=== PATIENT | male | born 1945 | race Caucasian/White ===

== ENCOUNTER 2016-12-25 15:32 | Emergency (ER) | payer OTHER, MEDICARE, BC ==
[~2016-12-25] VITALS: Ht 172.7 cm; Wt 100.0 kg
[~2016-12-25 15:32] MED LIST: ALBUTEROL SUL0.083 % IN; AMLODIPINE10 MG OR; AMLODIPINE10 MG PO; AUGMENTIN875TAB PO; BABY ASPIRIN81 MG PO; BACTRIM DS1 TAB PO; CIPRO500 MG OR; CLONIDINE0.1 MG OR; CLONIDINE0.1 MG PO; DOXYCYC MONO100 M1 PO; GLIMEPIRIDE2 MG PO; GLYBURIDE2.5 MG PO; INDOMETHACIN50 MG PO; LANCETS 30G30 G XX; LISINOPRIL20 MG PO; LORTAB 7.5 PO; METOPROL TAR50 MG OR; METOPROLOL TART50 MG PO; METOPROLOL100 M1 OR; Metformin OR; Metformin PO; NORVASC10 MG OR; ONE TOUCH ULTRA 100; ZESTRIL40 MG OR; allo OR; allo PO
[2016-12-25] MEDS ORDERED: EC-NAPROSYN500 MG PO (15:54)
[2016-12-25 16:14] VITALS: BP 161/70
== END 2016-12-25 16:09 | disposition home or self-care (01) | DRG 923 ==
LOC: ED 15:32
DX: Z04.1 Encounter for examination and observation following transport accident (principal); V43.52XA Car driver injured in collision with other type car in traffic accident, initial encounter; Y92.414 Local residential or business street as the place of occurrence of the external cause

== ENCOUNTER 2017-01-17 06:49 | Day surgery (SDC) | payer MEDICARE, BC ==
[~2017-01-17] VITALS: Ht 172.7 cm; Wt 108.9 kg
[~2017-01-17 06:49] MED LIST changes: +EC-NAPROSYN500 MG PO; +LISINOPRIL40 MG PO; +METFORMIN1000 MG PO; +NOVOLOG MIX SC; +ZOCOR20 M1 PO
[2017-01-17 10:33] VITALS: BP 176/85
== END 2017-01-17 09:50 | disposition home or self-care (01) ==
LOC: ENDO 06:49
PROVIDERS: ATTEND Internal Medicine Gastroenterology
PROC: 0DBN8ZX Excision of Sigmoid Colon, Via Natural or Artificial Opening Endoscopic, Diagnostic (ICD-10-PCS; principal; 2017-01-17)
DX: Z12.11 Encounter for screening for malignant neoplasm of colon (principal); K63.5 Polyp of colon; K64.4 Residual hemorrhoidal skin tags; K57.30 Diverticulosis of large intestine without perforation or abscess without bleeding; K64.8 Other hemorrhoids; E78.00 Pure hypercholesterolemia, unspecified; I10 Essential (primary) hypertension; E11.9 Type 2 diabetes mellitus without complications; Z86.010 Personal history of colon polyps

== ENCOUNTER 2020-08-28 03:24 | Observation (INO) | payer MEDICARE, BC ==
[~2020-08-28] VITALS: Ht 172.7 cm; Wt 114.0 kg
--- NOTE | 2020-08-28 03:30 | NUR ---
PT ARRIVED VIA EMS...NAD. IMMEDIATELY TO BEDSIDE.
--- NOTE | 2020-08-28 03:45 | NUR ---
PT STATES HE WAS FINE LAST NIGHT WHEN HE WENT TO BED AND WOKE UP AROUND 200AM WITH DIFFICULTY BREATHING FELT LIKE HE "JUST COULDN'T GET ENOUGH OXYGEN IN" SO HE CALLED EMS, STATES THIS HAPPENED TO HIM IN [place] IN [place]ILE VISITING HIS DAUGHTER AND THEY DIAGNOSED HIM WITH BRONCHITIS, CURRENTLY STATES FEELING BETTER, LUNG SOUNDS CLEAR SLIGHTLY DIMINSHED, O2 SAT 97% ON ROOM AIR, IV ACCESS OBTAINED AND LAB WORK OBTAINED WELL COVID AND FLU SAWABS, PT TOLERATED ALL WITH OUT INCIDENT, AWARE OF AWAITING RESULTS.
[2020-08-28 03:50] LABS: HEMOGLOBIN 14.5 g/dl (14.0-18.0); IMMATURE GRANULOCYTES 0.4 % (0.0-5.0); MEAN CELL VOLUME 88.5 fL CALC (80.0-100.0); MEAN CORPUSCULAR HGB 29.8 pG CALC (26.0-32.0); MEAN CORPUSCULAR HGB CONC 33.7 g/dL CAL (32.0-36.0); NEUT# 6.07 thou/uL (1.82-7.42); RED BLOOD COUNT 4.86 mill/uL (4.70-6.10); RED CELL DISTRI WIDTH 13.5 % (11.5-15.5)
--- NOTE | 2020-08-28 03:52 | NUR ---
REPEAT B/P 156/ HERMILO HELD MD AWARE.
[2020-08-28] MEDS ORDERED: LIPITOR40 M1 PO (03:57)
[2020-08-28] MEDS ORDERED: MICARDIS H80 MG/25 M PO (03:58)
[2020-08-28] MEDS ORDERED: BYSTOLIC20 MG PO (03:59)
[2020-08-28] MEDS ORDERED: VITAMIN D33000 UNIT PO (03:59)
[2020-08-28] MEDS ORDERED: SUPER B COM2 PO (04:00)
[2020-08-28] MEDS ORDERED: CENTRUM SILVER1 TA2 PO (04:01)
[2020-08-28] MEDS ORDERED: GUANFACINE1 MG PO (04:03)
[2020-08-28 04:05] LABS: ALBUMIN 4.8 g/dL (3.2-5.0); ALKALINE PHOSPHATASE 83 u/l (38-126); BILIRUBIN, TOTAL 0.8 mg/dL (0.0-1.4); BUN 23 mg/dL (8-23); BUN/CREATININE RATIO 30 (12-20 (CALC)); CARBON DIOXIDE 27 mmol/l (22-30); CHLORIDE 99 mmol/l (95-108); CREATININE 0.8 mg/dL (0.7-1.3); GFR > 60 ML/MIN (>=60 (CALC)); GFR FOR AFR.AMER. > 60 ML/MIN (>=60 (CALC)); SGOT/AST 45 u/l (19-48); SODIUM 140 mmol/l (137-146); TOTAL PROTEIN 8.4 g/dL (6.3-8.2)
[2020-08-28 04:07] LABS: ANION GAP 17 (6-22 (CALC)); POTASSIUM 3.4 mmol/l (3.5-5.1)
--- NOTE | 2020-08-28 05:06 | NUR ---
PT RETURNED FROM CT. RE-CONNECTED TO EQUIPT. RESTING. RESP EASY REG. NO C/O. WARM BLANKET APPLIED. HOB LOWERED. LIGHTS DIMMED.
--- NOTE | 2020-08-28 05:32 | NUR ---
PT RESTING NO S/S OF DISTRESS, CALL [facility] WITHIN REACH.
--- NOTE | 2020-08-28 06:02 | NUR ---
PT AWARE OF PENDING ADMISSION, NO S/S OF DISTRESS NOTED, CALL [facility] WITHIN REACH
--- NOTE | 2020-08-28 07:15 | NUR ---
ASSUMED CARE OF PT FOR TRANSPORT. PT TRANSPORTED TO MED SURG STABLE AND IN NO DISTRESS. PRIOR NURSE STATES SHE GAVE REPORT. Admission Note Report Given to: MED SURG NURSE Transported by: Wheelchair X Stretcher Transported with: X Nurse Transporter X Patent IV O2 X Parts Control Clerk Location: ICU X [facility]
[2020-08-28 07:26] VITALS: BP 173/86
--- NOTE | 2020-08-28 07:26 | NUR ---
PT ARRIVED FROM ER VIA STRETCHER WITH STAFF. IV SITE AND TELE MONITOR IN PLACE.
--- NOTE | 2020-08-28 08:35 | NUR ---
ASSESSMENT IS COMPLETED: IV SITE IS FREE FROM REDNESS OR EDEMA. HR IS REG,PULSES ARE STRONG X4, ABD IS SOFT WITH ACTIVE BS.BREATH SOUNDS ARE CLEAR,BILATERALLY, TELE MONITOR IN PLACE.
[2020-08-28 08:55] VITALS: BP 137/50
[2020-08-28 10:27] VITALS: BP 162/72
[2020-08-28] MEDS ORDERED: XANAX0.25 MG PO (11:22)
[2020-08-28 12:02] VITALS: BP 162/72
--- NOTE | 2020-08-28 12:15 | NUR ---
IV SITE DISCONTINUED CATHETER INTACT.NO REDNESS OR EDEMA. DISCHARGE INSTRUCTIONS GIVEN AND VERBALIZED UNDERSTANDING. WAITING ON RIDE.
--- NOTE | 2020-08-28 13:26 | NUR ---
Discharge instructions given. Patient verbalizes understanding of same. Discharged in stable condition via Wheelchair to Home with family. All belongings sent with pt.
== END 2020-08-28 13:18 | disposition home or self-care (01) ==
LOC: ED 03:24 → ED-I 06:05 → ED 06:28 → MS2 06:29
PROVIDERS: Emergency Medicine; ADMIT Internal Medicine; ATTEND Internal Medicine
DX: R06.02 Shortness of breath (principal); F41.9 Anxiety disorder, unspecified; I10 Essential (primary) hypertension; E11.9 Type 2 diabetes mellitus without complications; G47.30 Sleep apnea, unspecified; N40.0 Benign prostatic hyperplasia without lower urinary tract symptoms; Z79.4 Long term (current) use of insulin; Z20.822 Contact with and (suspected) exposure to COVID-19
CPT/HCPCS: G0378; Q9967

== ENCOUNTER 2022-05-26 04:51 | Emergency (ER) | payer MEDICARE, BC ==
[~2022-05-26] VITALS: Ht 172.7 cm; Wt 115.9 kg
[2022-05-26] VITALS (8 sets, daily range): BP systolic 170–186; BP diastolic 77–90
[~2022-05-26 04:51] MED LIST changes: +BYSTOLIC20 MG PO; +CENTRU2; +CENTRUM SILVER1 TA2 PO; +GABAPENTIN300 M2 PO; +GUANFACINE1 MG PO; +HYDROCHLOROTH12.5 M1 PO; +LIPITOR40 M1 PO; +MICARDIS H80 MG/25 M PO; +SUPER B COM2 PO; +VITAMIN D33000 UNIT PO; +XANAX0.25 MG PO
[2022-05-26 05:58] LABS: BASO% 0.7 % (0-3); EOS% 5.5 % (0-8); HEMATOCRIT 38.8 % (39.0-50.0); HEMOGLOBIN 13.4 g/dl (14.0-18.0); IMMATURE GRANULOCYTES 0.5 % (0.0-5.0); LYMPH% 27.1 % (15-41); MEAN CELL VOLUME 89.4 fL CALC (80.0-100.0); MEAN CORPUSCULAR HGB 30.9 pG CALC (26.0-32.0); MEAN CORPUSCULAR HGB CONC 34.5 g/dL CAL (32.0-36.0); MONO% 6.7 % (2-13); NEUT# 5.67 thou/uL (1.82-7.42); NEUT% 59.5 % (42-76); RED BLOOD COUNT 4.34 mill/uL (4.70-6.10); RED CELL DISTRI WIDTH 13.3 % (11.5-15.5)
[2022-05-26 06:25] LABS: ACT PARTIAL THROMBO TIME 25.8 SECONDS (20.0-32.5)
[2022-05-26 06:26] LABS: ALBUMIN 4.2 g/dL (3.2-5.0); ALKALINE PHOSPHATASE 79 u/l (38-126); ANION GAP 14 (6-22 (CALC)); BILIRUBIN, TOTAL 0.6 mg/dL (0.0-1.4); BUN 17 mg/dL (8-23); BUN/CREATININE RATIO 25 (12-20 (CALC)); CARBON DIOXIDE 25 mmol/l (22-30); CHLORIDE 105 mmol/l (95-108); CREATININE 0.7 mg/dL (0.7-1.3); GFR FOR AFR.AMER. > 60 ML/MIN (>=60 (CALC)); GFR OTHER RACES > 60 ML/MIN (>=60 (CALC)); POTASSIUM 3.5 mmol/l (3.5-5.1); SGOT/AST 42 u/l (19-48); SODIUM 141 mmol/l (137-146); TOTAL PROTEIN 7.1 g/dL (6.3-8.2)
[2022-05-26 06:32] LABS: D-DIMER 0.58 mg/L (0.19-0.60)
[2022-05-26] MEDS ORDERED: VIBRAMYCIN100 M2 PO (07:00)
[2022-05-26] MEDS ORDERED: VENTOLIN HFA IN (07:00)
== END 2022-05-26 07:42 | disposition home or self-care (01) ==
LOC: ED 04:51
PROVIDERS: Family Medicine
DX: J20.9 Acute bronchitis, unspecified (principal); I10 Essential (primary) hypertension; E11.9 Type 2 diabetes mellitus without complications; Z79.84 Long term (current) use of oral hypoglycemic drugs; Z79.4 Long term (current) use of insulin; Z20.822 Contact with and (suspected) exposure to COVID-19

== ENCOUNTER 2022-11-06 07:37 | Day surgery (SDC) | payer MEDICARE, BC ==
[~2022-11-06] VITALS: Ht 172.7 cm; Wt 116.1 kg
[~2022-11-06 07:37] MED LIST changes: +BUMETANIDE1 MG PO; +DITROPAN XL5 MG PO; +GLARGINE SC; +KLOR-CON M2020 MEQ PO; +LISINOPRIL20 M1 PO; +PROSCAR5 MG PO; +TAMSULOSIN0.4 MG PO; +TUMERIC PO; +VENTOLIN HFA IN; +VIBRAMYCIN100 M2 PO
[2022-11-06 10:08] VITALS: BP 159/81
== END 2022-11-06 10:00 | disposition home or self-care (01) ==
LOC: ENDO 07:37
PROVIDERS: ATTEND Surgery
PROC: 0DBF8ZX Excision of Right Large Intestine, Via Natural or Artificial Opening Endoscopic, Diagnostic (ICD-10-PCS; principal; 2022-11-06)
DX: D12.5 Benign neoplasm of sigmoid colon (principal); K57.30 Diverticulosis of large intestine without perforation or abscess without bleeding

== ENCOUNTER 2023-06-07 22:28 | Emergency (ER) | payer MEDICARE, BC ==
[~2023-06-07] VITALS: Ht 172.7 cm; Wt 120.0 kg
[2023-06-07 22:59] LABS: BASO% 0.6 % (0-3); EOS% 4.2 % (0-8); HEMATOCRIT 42.7 % (39.0-50.0); HEMOGLOBIN 14.3 g/dl (14.0-18.0); IMMATURE GRANULOCYTES 0.3 % (0.0-5.0); LYMPH% 11.3 % (15-41); MEAN CELL VOLUME 89.1 fL CALC (80.0-100.0); MEAN CORPUSCULAR HGB 29.9 pG CALC (26.0-32.0); MEAN CORPUSCULAR HGB CONC 33.5 g/dL CAL (32.0-36.0); MONO% 7.4 % (2-13); NEUT# 7.13 thou/uL (1.82-7.42); NEUT% 76.2 % (42-76); RED BLOOD COUNT 4.79 mill/uL (4.70-6.10); RED CELL DISTRI WIDTH 13.7 % (11.5-15.5)
[2023-06-07 23:16] VITALS: BP 145/55
[2023-06-07 23:25] LABS: ALBUMIN 4.6 g/dL (3.2-5.0); ALKALINE PHOSPHATASE 79 u/l (38-126); ANION GAP 13 (6-22 (CALC)); BILIRUBIN, TOTAL 0.7 mg/dL (0.2-1.3); BUN 17 mg/dL (8-23); BUN/CREATININE RATIO 20 (12-20 (CALC)); CARBON DIOXIDE 27 mmol/l (22-30); CHLORIDE 104 mmol/l (95-108); CREATININE 0.9 mg/dL (0.7-1.3); GFR FOR AFR.AMER. > 60 ML/MIN (>=60 (CALC)); GFR OTHER RACES > 60 ML/MIN (>=60 (CALC)); POTASSIUM 3.2 mmol/l (3.5-5.1); SGOT/AST 61 u/l (19-48); SODIUM 140 mmol/l (137-146); TOTAL PROTEIN 7.8 g/dL (6.3-8.2)
[2023-06-07 23:31] VITALS: BP 142/62
[2023-06-07 23:45] VITALS: BP 125/84
[2023-06-08] VITALS (13 sets, daily range): BP systolic 122–157; BP diastolic 56–80
[2023-06-08] MEDS ORDERED: PAXLOVID PO (10:30)
== END 2023-06-08 03:15 | disposition home or self-care (01) ==
LOC: ED 22:28
PROVIDERS: Family Medicine
DX: J44.1 Chronic obstructive pulmonary disease with (acute) exacerbation (principal); E87.6 Hypokalemia; I11.0 Hypertensive heart disease with heart failure; I50.9 Heart failure, unspecified; E11.9 Type 2 diabetes mellitus without complications; E78.5 Hyperlipidemia, unspecified; Z79.84 Long term (current) use of oral hypoglycemic drugs; Z79.4 Long term (current) use of insulin
CPT/HCPCS: J3475

== ENCOUNTER 2023-06-08 07:59 | Emergency (ER) | payer MEDICARE, BC ==
[2023-06-08] VITALS (8 sets, daily range): BP systolic 151–179; BP diastolic 72–88
[~2023-06-08] VITALS: Ht 172.7 cm; Wt 117.0 kg
[2023-06-08 08:48] LABS: URINE BLOOD DIPSTICK Small (NEGATIVE); URINE GLUCOSE - DIPSTICK Negative (NEGATIVE); URINE KETONE Negative (NEGATIVE); URINE LEUK ESTERASE Negative (NEGATIVE); URINE NITRITE - DIPSTICK Negative (Negative); URINE PH 5.5 (4.5-8.0); URINE PROTEIN - DIPSTICK >=300 mg/dL (NEG-TRACE); URINE SPECIFIC GRAVITY 1.025
[2023-06-08 08:49] LABS: BASO% 0.6 % (0-3); EOS% 2.3 % (0-8); HEMATOCRIT 42.3 % (39.0-50.0); HEMOGLOBIN 14.8 g/dl (14.0-18.0); IMMATURE GRANULOCYTES 0.6 % (0.0-5.0); MEAN CELL VOLUME 87.9 fL CALC (80.0-100.0); MEAN CORPUSCULAR HGB 30.8 pG CALC (26.0-32.0); MONO% 9.3 % (2-13); NEUT# 6.88 thou/uL (1.82-7.42); NEUT% 76.2 % (42-76); RED BLOOD COUNT 4.81 mill/uL (4.70-6.10); RED CELL DISTRI WIDTH 13.9 % (11.5-15.5)
[2023-06-08 08:51] LABS: URINE COLOR Yellow
[2023-06-08 09:03] LABS: URINE HYALINE CAST FEW lpf (NONE-RARE); URINE SQUAMOUS EPITHELIAL CELL FEW EPI/hpf (0-FEW)
[2023-06-08 09:03] LABS: ALBUMIN 4.6 g/dL (3.2-5.0); ALKALINE PHOSPHATASE 73 u/l (38-126); ANION GAP 15 (6-22 (CALC)); BILIRUBIN, TOTAL 0.9 mg/dL (0.2-1.3); BUN 17 mg/dL (8-23); BUN/CREATININE RATIO 22 (12-20 (CALC)); CARBON DIOXIDE 25 mmol/l (22-30); CHLORIDE 104 mmol/l (95-108); CREATININE 0.8 mg/dL (0.7-1.3); GFR FOR AFR.AMER. > 60 ML/MIN (>=60 (CALC)); GFR OTHER RACES > 60 ML/MIN (>=60 (CALC)); POTASSIUM 3.6 mmol/l (3.5-5.1); SGOT/AST 66 u/l (19-48); SODIUM 140 mmol/l (137-146); TOTAL PROTEIN 7.6 g/dL (6.3-8.2)
[2023-06-08] MEDS ORDERED: PAXLOVID PO (10:30)
== END 2023-06-08 10:40 | disposition home or self-care (01) ==
LOC: ED 07:59
PROVIDERS: Emergency Medicine
DX: U07.1 COVID-19 (principal); J10.1 Influenza due to other identified influenza virus with other respiratory manifestations; I11.0 Hypertensive heart disease with heart failure; I50.9 Heart failure, unspecified; E11.9 Type 2 diabetes mellitus without complications; J44.9 Chronic obstructive pulmonary disease, unspecified; E78.5 Hyperlipidemia, unspecified; Z79.84 Long term (current) use of oral hypoglycemic drugs; Z79.4 Long term (current) use of insulin

== ENCOUNTER 2023-10-18 02:26 | Emergency (ER) | payer MEDICARE, BC ==
[2023-10-18] VITALS (11 sets, daily range): BP systolic 153–193; BP diastolic 63–166
[~2023-10-18] VITALS: Ht 172.7 cm; Wt 115.7 kg
[~2023-10-18 02:26] MED LIST changes: +PAXLOVID PO
[2023-10-18] MEDS ORDERED: SODIUM CHLORIDE 0.9% 1,000 ML IV STA (02:53)
[2023-10-18] MEDS ORDERED: PROMETHAZINE HCL 25 MG/ML AMP IV ONE (02:55)
[2023-10-18 03:30] LABS: BASO% 0.7 % (0-3); EOS% 1.5 % (0-8); HEMATOCRIT 41.1 % (39.0-50.0); HEMOGLOBIN 14.2 g/dl (14.0-18.0); IMMATURE GRANULOCYTES 0.4 % (0.0-5.0); LYMPH% 10.3 % (15-41); MEAN CELL VOLUME 90.5 fL CALC (80.0-100.0); MEAN CORPUSCULAR HGB 31.3 pG CALC (26.0-32.0); MEAN CORPUSCULAR HGB CONC 34.5 g/dL CAL (32.0-36.0); MONO% 4.2 % (2-13); NEUT# 9.66 thou/uL (1.82-7.42); NEUT% 82.9 % (42-76); RED BLOOD COUNT 4.54 mill/uL (4.70-6.10)
[2023-10-18 03:54] LABS: ALBUMIN 4.3 g/dL (3.2-5.0); CREATININE 0.9 mg/dL (0.7-1.3); POTASSIUM 3.9 mmol/l (3.5-5.1); TOTAL PROTEIN 7.6 g/dL (6.3-8.2)
[2023-10-18 03:55] LABS: BILIRUBIN, TOTAL 0.9 mg/dL (0.2-1.3)
[2023-10-18] MEDS ORDERED: LACTATED RINGER'S 1,000 ML IV ONE (06:05)
[2023-10-18] MEDS ORDERED: PROMETHAZINE HY25 M1 PO (06:52)
[2023-10-18 07:18] LABS: URINE BILIRUBIN - DIPSTICK Negative (NEGATIVE); URINE BLOOD DIPSTICK Small (NEGATIVE); URINE GLUCOSE - DIPSTICK Negative (NEGATIVE); URINE KETONE Negative (NEGATIVE); URINE LEUK ESTERASE Negative (NEGATIVE); URINE NITRITE - DIPSTICK Negative (Negative); URINE PH 5.5 (4.5-8.0); URINE PROTEIN - DIPSTICK 100 mg/dL (NEG-TRACE); URINE SPECIFIC GRAVITY 1.015; URINE UROBILINOGEN - DIPSTICK 0.2 E.U./dL (0.2)
[2023-10-18 07:21] LABS: URINE COLOR Yellow
[2023-10-18 07:24] LABS: URINE BACTERIA FEW hpf; URINE EPITHELIAL CELLS FEW EPI/hpf (0-FEW)
[2023-10-18] MEDS ORDERED: ZOFRAN4 MG/TAB PO (07:54)
== END 2023-10-18 08:18 | disposition home or self-care (01) ==
LOC: ED 02:26
PROVIDERS: Family Medicine
DX: K52.9 Noninfective gastroenteritis and colitis, unspecified (principal); I11.0 Hypertensive heart disease with heart failure; I50.9 Heart failure, unspecified; E11.9 Type 2 diabetes mellitus without complications; J44.9 Chronic obstructive pulmonary disease, unspecified; E78.5 Hyperlipidemia, unspecified; G47.30 Sleep apnea, unspecified; Z79.84 Long term (current) use of oral hypoglycemic drugs; Z79.4 Long term (current) use of insulin; Z20.822 Contact with and (suspected) exposure to COVID-19

== ENCOUNTER 2024-03-08 03:35 | Emergency (ER) | payer MEDICARE, BC ==
[2024-03-08] VITALS (9 sets, daily range): BP systolic 134–163; BP diastolic 67–77
[~2024-03-08] VITALS: Ht 172.7 cm; Wt 68.0 kg
[~2024-03-08 03:35] MED LIST changes: +PROMETHAZINE HY25 M1 PO; +ZOFRAN4 MG/TAB PO
[2024-03-08 04:27] LABS: CREATININE 1.3 mg/dL (0.7-1.3); POTASSIUM 4.5 mmol/l (3.5-5.1)
== END 2024-03-08 05:49 | disposition home or self-care (01) ==
LOC: ED 03:35
PROVIDERS: Family Medicine
DX: E11.649 Type 2 diabetes mellitus with hypoglycemia without coma (principal); I11.0 Hypertensive heart disease with heart failure; I50.9 Heart failure, unspecified; E78.5 Hyperlipidemia, unspecified; J44.9 Chronic obstructive pulmonary disease, unspecified; Z79.4 Long term (current) use of insulin; Z79.84 Long term (current) use of oral hypoglycemic drugs